=== PATIENT | female | born 1965 | race African-American/Black ===

== ENCOUNTER 2021-07-24 15:17 | Emergency (ER) | payer OTHER ==
[~2021-07-24 15:17] MED LIST: MULTI-VITAMIN1 EAC1 PO; VITAMIN C100 M1 PO
== END 2021-07-24 15:41 | disposition left against medical advice (07) ==
LOC: ER 15:17
DX: S91.111A Laceration without foreign body of right great toe without damage to nail, initial encounter (principal); Z53.21 Procedure and treatment not carried out due to patient leaving prior to being seen by health care provider; Z90.49 Acquired absence of other specified parts of digestive tract; Z98.890 Other specified postprocedural states; Z91.041 Radiographic dye allergy status; Z91.048 Other nonmedicinal substance allergy status; W20.8XXA Other cause of strike by thrown, projected or falling object, initial encounter; Y93.89 Activity, other specified; Y92.89 Other specified places as the place of occurrence of the external cause; Y99.8 Other external cause status